=== PATIENT | female | born 1970 ===

== ENCOUNTER 2019-06-21 10:17 | Emergency (ER) | payer BC ==
[~2019-06-21] VITALS: Ht 160 cm; Wt 72.6 kg
[2019-06-21] MEDS ORDERED: NORFLEX100MG PO (14:19)
== END 2019-06-21 16:07 | disposition home or self-care (01) ==
LOC: ER 10:17
DX: R10.12 Left upper quadrant pain (principal); M54.89 Other dorsalgia